=== PATIENT | female | born 1950 | race Caucasian/White ===

== ENCOUNTER → 2017-04-23 | Day surgery (SDC) | payer MEDICARE, OTHER ==
[~2017-04-23] MED LIST: BUPIVACAINE/EPINEPHRINE 0.5% PF 30 ML VIAL ONE; CALC-111 TOPICAL; FAMO20TA2 PO; GETGO ROLLING W1 MI1; HYDRGEL4 TOPICAL; LACTATED RINGER'S 1000 ML INJ 1,000 ML ONE; LIDOCAINE 1%/EPINEPHrine 1:100,000 SOLN 30 ML VIAL ONE; METO100T PO; MIDAZOLAM HCL 2 MG/2 ML VIAL ONE; ONDANSETRON HCL 4 MG/2 ML VIAL IV PUSH ONE; PANC4200 PO; PROPOFOL 200 MG/20 ML AMP IV ONE; WHEEMIS3; XEROMIS TOPICAL; [UNRECOGNIZED DRUG - SUPPLY]; ceFAZolin 2 GM PREMIX 50 ML ONE
--- NOTE | 2017-04-25 13:26 | TN ---
cc: PRITESH KHALIL DATE OF SURGERY 04/23/2017 PREOPERATIVE DIAGNOSIS DCIS with previous resection and close margins. POSTOPERATIVE DIAGNOSIS DCIS with previous resection and close margins. PROCEDURE Re-excision of margins right breast lumpectomy for DCIS ATTENDING SURGEON Pritesh Khalil MD [employer] Staff ANESTHESIA TIVA and local anesthetic COMPLICATIONS None BLOOD LOSS Less than 10 cc FINDINGS The previous lumpectomy cavity healing well without any complication. 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 She underwent lumpectomy, but on final pathology, she was found to have an anterior margin which was less than 1 mm. I had a discussion with Dr. Sarmiento of radiation oncology and with the patient and we recommend re-excision to obtain wire margins per recommendations. The patient has agreed to undergo the procedure and the risks, benefits and alternatives were discussed as above. PROCEDURE The patient was taken to the operating room of [facility] and placed under TIVA. Her right breast was prepped and draped in a sterile fashion. Local anesthetic was instilled in the planned excision site. We performed an elliptical type excision incorporating the previous lumpectomy scar as well as extending medially over the skin and this was taken down all way to the lumpectomy cavity. This was done because the anterior margin was essentially the skin or subcutaneous tissue the anterior portion of the lumpectomy cavity. This again was completely excised with the 15 blade scalpel followed by Bovie electrocautery. The skin was the most anterior margin and we put a stitch to orient medially towards the nipple-areolar and passed this off for permanent processing. We also did a small excision of medial margin as this had been a fairly close margin as well over more than 1 mm. This was done with the Metzenbaum scissors and was passed off with a stitch marking the true margin. We got excellent hemostasis with the Bovie electrocautery. We irrigated out the cavity until all succinate was clear. We closed our new lumpectomy type incision with 3-0 deep dermal sutures followed for 4-0 Monocryl and Dermabond. The patient was discontinued from anesthesia and taken to PACU in stable condition. The patient tolerated the procedure well. No apparent complications. All counts were correct and I was present and scrubbed for the entire procedure. MD LORRI Cruz/PINKY /12:40 PM /1:12 PM
== END | disposition home or self-care (01) ==
LOC: ESDC 11:55
PROVIDERS: ATTEND Surgery
DX: D05.11 Intraductal carcinoma in situ of right breast (principal)
CPT/HCPCS: 00400; 19301; 88307; J0690; J2250; J2405; J3010; J7120